=== PATIENT | male | born 1995 | race Caucasian/White ===

== ENCOUNTER → 2019-10-22 | Outpatient (CLI) | payer OTHER ==
[~2019-10-22] MED LIST: METHACHOLINE KIT (J7674) INH ONE
--- NOTE | 2019-10-22 15:32 | PFTRPT ---
Height: 65.00 Inches Weight: 147.00 Lbs BSA: 1.74 Diagnosis: R06.00 DATE OF PROCEDURE: 10/22/2019 ORDERED BY: Nolan Baig PA-C INTERPRETATION: Study of excellent technical quality. Under protocol, methacholine was administered. Even after a maximal dose of 25 mg or 188.875 CDUs, no provocation dose ever achieved. IMPRESSION: Negative methacholine challenge study. MTDD
== END ==
LOC: M CARPUL 14:31
PROVIDERS: ATTEND Physician Assistant
DX: R06.00 Dyspnea, unspecified (principal)
CPT/HCPCS: 94070; J7674

== ENCOUNTER 2020-05-05 11:12 | Inpatient (IN) | payer OTHER ==
[~2020-05-05] VITALS: Ht 165.1 cm; Wt 66.8 kg
[2020-05-05] MEDS ORDERED: MOBI15TA PO (11:23)
[2020-05-05 12:34] LABS: HEMATOCRIT 41.3 % (42.0-52.0); HEMOGLOBIN 14.4 g/dl (13.5-17.5); MEAN CORPUSCULAR HGB CONC 34.9 g/dl (32.0-36.5); MEAN CORPUSCULAR VOLUME 88.8 fl (80.0-96.0); PLATELET COUNT, AUTOMATED 235 10^3/uL (150-450); RED BLOOD COUNT 4.65 10^6/uL (4.30-6.10); WHITE BLOOD COUNT 7.3 10^3/uL (4.0-10.0)
[2020-05-05 12:45] LABS: AMPHETAMINES LEVEL URINE NEGATIVE (NEGATIVE); BARBITURATES URINE NEGATIVE (NEGATIVE); BENZODIAZEPINES URINE NEGATIVE (NEGATIVE); CANNABINOIDS URINE NEGATIVE (NEGATIVE); COCAINE METABOLITE URINE NEGATIVE (NEGATIVE); METHADONE URINE NEGATIVE (NEGATIVE); OPIATES URINE NEGATIVE (NEGATIVE); PHENCYCLIDINE URINE NEGATIVE (NEGATIVE)
[2020-05-05 12:55] LABS: ACETAMINOPHEN LEVEL < 2.0 UG/ML (10.0-30.0); ALBUMIN 4.3 GM/DL (3.2-5.2); ALT/SGPT 21 U/L (12-78); BILIRUBIN,DIRECT 0.2 MG/DL (0.0-0.2); BILIRUBIN,TOTAL 0.9 MG/DL (0.2-1.0); BLOOD UREA NITROGEN 14 MG/DL (7-18); CARBON DIOXIDE LEVEL 30 MEQ/L (21-32); CHLORIDE LEVEL 107 MEQ/L (98-107); GLOMERULAR FILTRATION RATE > 60.0 (>60); GLUCOSE, FASTING 83 MG/DL (70-100); SALICYLATE LEVEL < 1.7 MG/DL (5.0-30.0); SODIUM LEVEL 141 MEQ/L (136-145); THYROID STIMULATING HORMONE 0.657 uIU/ML (0.358-3.740); TOTAL PROTEIN 7.2 GM/DL (6.4-8.2)
[2020-05-05 13:19] LABS: ETHYL ALCOHOL (ETHANOL) < 0.003 % (0.000-0.010)
[2020-05-05] MEDS ORDERED: ACETAMINOPHEN TAB 650MG DOSE (2X325MG) PO PRN (21:30)
[2020-05-05] MEDS ORDERED: OLANZapine ORAL DISINTEGRATING TAB 5MG PO PRN (21:30)
[2020-05-05] MEDS ORDERED: MOM 30ML SUSPENSION UDC PO PRN (21:30)
[2020-05-05] MEDS ORDERED: NICOTINE 21MG/24HR 1 EA TRANSDERMAL TD PRN (21:30)
[2020-05-05] MEDS ORDERED: MAALOX 30 ML SUSP *UDC PO PRN (21:30)
[2020-05-05] MEDS ORDERED: traZODone 50 MG TAB PO PRN (21:30)
[2020-05-05 23:26] VITALS: BP 128/74
[2020-05-06 06:48] VITALS: BP 118/69
--- NOTE | 2020-05-06 09:16 | MHHPEPDOC ---
[facility] History & Physical History and Physical DATE OF ADMISSION: May 05, 2020 at 21:22 HPI: Poli presents today for concerns regarding his audio and visual hallucinations since last winter. He complains of visual hallucinations that are distorted. He complains of auditory hallucinations of voices and sounds. 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 He complains of flashbacks when he is in his uniform. Hes noticed occasional bipolar mood swings where his lows and highs alternate every few weeks. FAMILY HISTORY: Poli denies any family history of hallucinations. Objective Appearance: Well groomed. Appears to be stated age. Well nourished. Speech: Spontaneous and Fluid. Normal volume. Normal rate. Cognition: Alert, Attentive, and Oriented to person, place, time. Reports auditory hallucinations, but no signs of internal preoccupation are seen. Thought Form: Linear and goal directed. Somewhat guarded at times. Judgement: Intact as evidenced by decision making in the recent past. Insight: Good insight into symptoms and treatment options. Assessment F43.9 Reaction to severe stress, unspecified Plan The risks, benefits as well as common side effects as well as alternative treatments (including non-treatment) were discussed with the patient both in general and for their particular case. The patient selected this option out of a range. Try 2 mg Abilify nightly for mood stabilization. Treatment is between 1-3 days. Vital Signs Vital Signs Date Time Temp Pulse Resp B/P (MAP) Pulse Ox O2 Delivery O2 Flow Rate FiO2 05/06/20 08:54 Room Air 05/06/20 06:48 97.6 70 12 118/69 (85) 05/05/20 23:26 98 Laboratory Data 24H Labs Laboratory Tests 2 05/05/20 11:51: Nucleated Red Blood Cells % (auto) 0.0, Anion Gap 4L, Glomerular Filtration Rate > 60.0, Calcium Level 9.0, Total Bilirubin 0.9, Direct Bilirubin 0.2, Aspartate Amino Transf (AST/SGOT) 24, Alanine Aminotransferase (ALT/SGPT) 21, Alkaline Phosphatase 71, Total Protein 7.2, Albumin 4.3, Albumin/Globulin Ratio 1.5, Thyroid Stimulating Hormone (TSH) 0.657, Salicylates Level < 1.7L, Urine Opiates Screen NEGATIVE, Urine Methadone Screen NEGATIVE, Acetaminophen Level < 2.0L, Urine Barbiturates Screen NEGATIVE, Urine Phencyclidine Screen NEGATIVE, Urine Amphetamines Screen NEGATIVE, Urine Benzodiazepines Screen NEGATIVE, Urine Cocaine Metabolite Screen NEGATIVE, Urine Cannabinoids Screen NEGATIVE, Ethyl Alcohol Level < 0.003 CBC/BMP Laboratory Tests 05/05/20 11:51 Medications Scheduled Meloxicam (Mobic) 15 Mg Tablet, 15 MG PO DAILY, (Reported) Allergies Coded Allergies: No Known Allergies (Unverified , 10/18/19) A-FIB/CHADSVASC A-FIB History Current/History of A-Fib/PAF?: No KAL PARKINSON DO May 06, 2020 09:16
[2020-05-06 16:18] VITALS: BP 111/59
[2020-05-06] MEDS ORDERED: ARIPiprazole 2 MG TAB PO SCH (21:00)
--- NOTE | 2020-05-06 23:17 | HPEPDOC ---
[facility] Medical History & Physical Date of Admission May 05, 2020 Date of Service: May 06, 2020 History and Physical CHIEF COMPLAINT: HISTORY OF PRESENT ILLNESS: PAST MEDICAL HISTORY: 1. . 2. . 3. . PAST SURGICAL HISTORY: 1. . 2. . 3. . SOCIAL HISTORY: Marital status: . Resides in: Children: Employment: Tobacco use: ETOH: Illicit drug use: Tattoos done unprofessionally: . IV drug use: Other relevant social factors: FAMILY HISTORY: Father: Mother: Siblings: Children: Hereditary Diseases: Unexpected deaths due to medical reasons: ALLERGIES: Please see below. REVIEW OF SYSTEMS: CONSTITUTIONAL: . HEENT: . CARDIOVASCULAR: . RESPIRATORY: . GASTROINTESTINAL: . GENITOURINARY: . SKIN: . MUSCULOSKELETAL: . NEUROLOGICAL: . PSYCHIATRIC: . ENDOCRINE: . HEMATOLOGIC/LYMPHATIC: . HOME MEDICATIONS: Please see below. PHYSICAL EXAMINATION: VITAL SIGNS: Temperature , pulse , respiratory rate , blood pressure , pulse oximetry % on room air. GENERAL APPEARANCE: . HEENT: . CARDIOVASCULAR: . LUNGS: . ABDOMEN: . MUSCULOSKELETAL: . EXTREMITIES: . NEUROLOGICAL: . PSYCHIATRIC: . LABORATORY DATA: See below. IMAGING: MICROBIOLOGY: Please see below. ASSESSMENT: . . PLAN: 1. . Vital Signs Vital Signs Date Time Temp Pulse Resp B/P (MAP) Pulse Ox O2 Delivery O2 Flow Rate FiO2 05/06/20 16:18 98.5 56 16 111/59 (76) 05/06/20 08:54 Room Air 05/05/20 23:26 98 Home Medications Scheduled Meloxicam (Mobic) 15 Mg Tablet, 15 MG PO DAILY Allergies Coded Allergies: No Known Allergies (Unverified , 10/18/19) CARLOS A CARRASCO MD May 06, 2020 23:17
[2020-05-07 06:44] VITALS: BP 137/73
--- NOTE | 2020-05-07 08:09 | MHIPNPDOC ---
[facility] Progress Note Progress Note DATE OF SERVICE: 05/07/20 Subjective HPI: Poli presents today for follow-up after taking medication. Poli reported that he felt calm and less anxious after taking the medication last night. He denies being afraid of people, but prefers to keep to himself as he is isolated from other people at the moment. Poli denies experiencing tremors and does not report any specific problems or complaints. Additionally, Poli would like to be discharged tomorrow. MEDICATIONS: He is doing well on the medication Abilify, but an increased dosage is recommended. Objective Appearance: Appears to be stated age. Well nourished. Well groomed. Behavior: Cooperative with good eye contact. Pleasant. Engaged. Affect: Appropriate to context. Full range. Mood: Euthymic. Generally good. Appropriately reactive. Speech: Normal rate. Spontaneous and Fluid. Normal volume. Motor: No gross motor abnormalities. Cognition: Alert, Attentive, and Oriented to person, place, time. Memory: No gross abnormalities of short or roll handler memory noted during interview. No formal testing. Thought Form: Linear and goal directed. Thought Content: No thoughts of self harm. No evidence of suicidal ideation. No evidence of delusions. No evidence of aggressive or homicidal ideation. Perception: No perceptual abnormalities noted. Judgement: Intact as evidenced by decision making in the recent past. Insight: Good insight into symptoms and treatment options. Assessment F29 Unspecified psychosis not due to a substance or known physiological condition Plan Increase Abilify dosage to 5 mg, nightly, to help with development, stability, and reported auditory hallucinations. Discharge tomorrow at patients request. Patient will not likely meet involuntary criteria at that time. Vital Signs Vital Signs Date Time Temp Pulse Resp B/P (MAP) Pulse Ox O2 Delivery O2 Flow Rate FiO2 05/07/20 06:44 98.8 62 16 137/73 (94) 05/06/20 08:54 Room Air 05/05/20 23:26 98 Current Medications Current Medications Medications (Trade) Dose Ordered Sig/Jo Route PRN Reason Start Time Stop Time Status Last Admin Dose Admin Acetaminophen (Tylenol Tab) 650 mg Q6HP PRN PO HEADACHE or DISCOMFORT 05/05/20 21:30 Al Hydrox/Mg Hydrox/Simethicone (Mylanta) 30 ml Q4HP PRN PO HEARTBURN/INDIGESTION 05/05/20 21:30 Aripiprazole (AbiLIFY) 2 mg QHS PO 05/06/20 21:00 05/06/20 21:52 Home Med (Med Rec Complete!) ASDIRECTED XX 05/05/20 14:00 05/05/20 13:50 DC Magnesium Hydroxide (Milk Of Magnesia) 30 ml DAILYPRN PRN PO CONSTIPATION 05/05/20 21:30 Nicotine (Nicoderm Cq 21mg) 1 patch DAILY PRN TD Nicotine withdrawal 05/05/20 21:30 Olanzapine (ZyPREXA ZYDIS) 5 mg Q4HP PRN PO AGITATION 05/05/20 21:30 Trazodone HCl (Desyrel) 50 mg QHSP PRN PO INSOMNIA 05/05/20 21:30 Allergies Coded Allergies: No Known Allergies (Unverified , 10/18/19) KAL PARKINSON DO May 07, 2020 08:09
--- NOTE | 2020-08-18 11:07 | MHDSPDOC ---
[facility] Discharge Summary Discharge Summary DATE OF ADMISSION: May 05, 2020 at 21:22 DATE OF DISCHARGE: May 08, 2020 at 11:37 DISCHARGE DIAGNOSES: Acute stress reaction CONSULTANTS INVOLVED:[ None (basic hospitalist screening)] REASON FOR ADMISSION & TREATMENT AND PROGRESS ON THE UNIT : The patient was admitted to the inpatient mental health unit with acute stress reaction, he was treated with Abilify first 2 mg increased to 5 mg the positive effects, he made good progress and eventually was triaged for discharge. He had no major issues on the unit and generally resolved terms of suicide and auditory hallucinations quickly after he had presented. DISCHARGE ASSESSMENT:[improved] Legal status considerations: The patient at the time of discharge did not meet criteria for involuntary admission/extension due to having a [normal] mental status exam, [fair] insight into the situation, They are engaged in the discharge process, as well as being friendly and amenable in behavioral control and havent been engaging in any observed concerning behavior or ideation recently. They decline voluntary exte nsion/admission at this time and must be discharged in good [place], as Im unable to make a case for holding the patient against their will. They may have historical risk factors of admissions and other interactions with psychiatry however, those are not modifiable from a clinical perspective. The patient will need to be discharged in good edgar. MENTAL STATUS EXAMINATION ON DISCHARGE: [General: Well dressed with good hygiene Speech: Spontaneous and fluid Thought processes: Linear and logical Thought content: Future orientated Abstract reasoning, and computation: Intact Description of associations: Intact Description of abnormal or psychotic thoughts:Denies any suicidal or homicidal ideation. Denies any auditory or visual hallucinations. Does not appear to be responding to internal stimuli. Does not appear to be endorsing any bizarre or paranoid ideation. Judgment: fair Insight: fair Orientation: Alert and orientated 3 Recent and remote memory: Intact Attention span and concentration: Intact Fund of knowledge: Adequate Mood: "okay" Affect: Euthymic with a full range] PLAN/FOLLOWUP ARRANGEMENTS: Follow up appointments made (PCP and MH in 5 days of D/C date) and safety plan completed. Safety Planning aspects completed prior to discharge [Medication supplies limited to 7 days with 4 refills to prevent accumulation to OD] [Family contact completed, educated on safe practices, instructed on removal and mitigation of dangerous means] [RN reviewed crisis hotline information and other aspects to empower patient to access care in interim before next appointment.] The amount of time spent in the coordination of care for this patient was approximately 30 minutes. Medications Scheduled Aripiprazole (Abilify) 5 Mg Tablet, 5 MG PO QHS for mood for 7 Days, #7 Scheduled PRN Tizanidine HCl (Tizanidine HCl) 4 Mg Tablet, 4 MG PO TID PRN for MUSCLE SPASMS for 7 Days, #7 Allergies Coded Allergies: No Known Allergies (Unverified , 10/18/19) KAL PARKINSON DO Aug 18, 2020 11:07
== END 2020-05-08 11:37 | disposition home or self-care (01) | DRG 882 ==
LOC: M ED 11:12 → M ED INP 21:22 → M PSY 22:19
PROVIDERS: ADMIT Psychiatry & Neurology Addiction Medicine; ATTEND Psychiatry & Neurology Addiction Medicine
DX: F43.9 Reaction to severe stress, unspecified (principal); F29 Unspecified psychosis not due to a substance or known physiological condition

== ENCOUNTER 2020-07-21 12:03 | Inpatient (IN) | payer OTHER ==
[~2020-07-21] VITALS: Ht 165.1 cm; Wt 69.5 kg
[~2020-07-21 12:03] MED LIST changes: -METHACHOLINE KIT (J7674) INH ONE; +MOBI15TA PO
[2020-07-21 12:29] LABS: HEMATOCRIT 41.8 % (42.0-52.0); HEMOGLOBIN 14.9 g/dl (13.5-17.5); MEAN CORPUSCULAR HEMOGLOBIN 30.5 pg (27.0-33.0); MEAN CORPUSCULAR HGB CONC 35.6 g/dl (32.0-36.5); MEAN CORPUSCULAR VOLUME 85.7 fl (80.0-96.0); PLATELET COUNT, AUTOMATED 219 10^3/uL (150-450); RED BLOOD COUNT 4.88 10^6/uL (4.30-6.10); WHITE BLOOD COUNT 5.6 10^3/uL (4.0-10.0)
[2020-07-21 13:12] LABS: ACETAMINOPHEN LEVEL < 2.0 UG/ML (10.0-30.0); ALBUMIN 4.1 GM/DL (3.2-5.2); ALT/SGPT 16 U/L (12-78); BILIRUBIN,DIRECT 0.1 MG/DL (0.0-0.2); BILIRUBIN,TOTAL 0.5 MG/DL (0.2-1.0); BLOOD UREA NITROGEN 12 MG/DL (7-18); CALCIUM LEVEL 9.2 MG/DL (8.5-10.1); CARBON DIOXIDE LEVEL 27 MEQ/L (21-32); CHLORIDE LEVEL 108 MEQ/L (98-107); CREATININE FOR GFR 0.97 MG/DL (0.70-1.30); ETHYL ALCOHOL (ETHANOL) < 0.003 % (0.000-0.010); GLOMERULAR FILTRATION RATE > 60.0 (>60); GLUCOSE, FASTING 105 MG/DL (70-100); SALICYLATE LEVEL < 1.7 MG/DL (5.0-30.0); SODIUM LEVEL 141 MEQ/L (136-145); THYROID STIMULATING HORMONE 0.742 uIU/ML (0.358-3.740); TOTAL PROTEIN 7.2 GM/DL (6.4-8.2)
[2020-07-21] MEDS ORDERED: TIZA4TAB4 PO (17:07)
[2020-07-21] MEDS ORDERED: ABIL1TAB11 PO (17:07)
[2020-07-21 18:05] LABS: AMPHETAMINES LEVEL URINE NEGATIVE (NEGATIVE); BARBITURATES URINE NEGATIVE (NEGATIVE); BENZODIAZEPINES URINE NEGATIVE (NEGATIVE); CANNABINOIDS URINE NEGATIVE (NEGATIVE); COCAINE METABOLITE URINE NEGATIVE (NEGATIVE); METHADONE URINE NEGATIVE (NEGATIVE); OPIATES URINE NEGATIVE (NEGATIVE); PHENCYCLIDINE URINE NEGATIVE (NEGATIVE)
[2020-07-21] MEDS ORDERED: MOM 30ML SUSPENSION UDC PO PRN (22:15)
[2020-07-21] MEDS ORDERED: MAALOX 30 ML SUSP *UDC PO PRN (22:15)
[2020-07-21] MEDS ORDERED: traZODone 50 MG TAB PO PRN (22:15)
[2020-07-21] MEDS ORDERED: ACETAMINOPHEN TAB 650MG DOSE (2X325MG) PO PRN (22:15)
[2020-07-21] MEDS ORDERED: tiZANidine 4 MG TAB PO PRN (22:30)
[2020-07-21] MEDS ORDERED: OLANZapine ORAL DISINTEGRATING TAB 5MG PO PRN (22:30)
[2020-07-21 23:41] VITALS: BP 122/62
[2020-07-22 07:07] VITALS: BP 105/57
--- NOTE | 2020-07-22 09:11 | MHHPEPDOC ---
[facility] History & Physical History and Physical DATE OF ADMISSION: Jul 21, 2020 at 22:09 Subjective HPI: Poli presents today for concerns regarding a possible resurgence of a previous psychotic disorder. Patient didnt experience anything different during the fir st week after discontinuing Abilify. During second week, he felt paranoid, audio and visual hallucinations, and problems with concentration and functioning while driving. Patient denies suicidal thoughts or any past suicidal attempts. MEDICATIONS: Current medications include Tizanidine for muscle relaxant, Abilify 5 mg one pill daily. Patient has stopped taking Abilify about 2 weeks ago. MEDICAL HISTORY: Patient was last seen in the facility in April 2020. FAMILY HISTORY: Patient has no family history of mental health problems. SOCIAL HISTORY - OCCUPATION: Patient is in the [employer]. Hes trying to get out but its been a long process. SOCIAL HISTORY - LIVING SITUATION: Patient is living in the [facility] which he states are normal living conditions, but lots of mechanisms are in the room such as multiple fire alarms, AC equipment which disturb him. Patient is unmarried. Hes close to his family and has friends. SOCIAL HISTORY - SUBSTANCE USE: Patient has no history of alcohol use. SOCIAL HISTORY - SMOKING: He has not used tobacco or marijuana. Objective Behavior: Pleasant. Poor eye contact. Engaged. Speech: Normal rate. Spontaneous and Fluid. Normal volume. Cognition: Fair. Thought Form: Linear and logical. Thought Content: No thoughts of self harm. No evidence of delusions. No evidence of aggressive or homicidal ideation. No evidence of suicidal ideation. Judgement: Poor - Fair. Insight: Poor - Fair. Assessment F29 Unspecified psychosis not due to a substance or known physiological condition Plan Restart Abilify 5 mg nightly. Staying 1-3 days. Tx. 1. altered thoughts and SI/HI Vital Signs Vital Signs Date Time Temp Pulse Resp B/P (MAP) Pulse Ox O2 Delivery O2 Flow Rate FiO2 07/22/20 07:07 97.7 40 16 105/57 (73) 97 Room Air Laboratory Data 24H Labs Laboratory Tests 2 07/21/20 12:21: Nucleated Red Blood Cells % (auto) 0.0, Anion Gap 6L, Glomerular Filtration Rate > 60.0, Calcium Level 9.2, Total Bilirubin 0.5, Direct Bilirubin 0.1, Aspartate Amino Transf (AST/SGOT) 15, Alanine Aminotransferase (ALT/SGPT) 16, Alkaline Phosphatase 68, Total Protein 7.2, Albumin 4.1, Albumin/Globulin Ratio 1.3, Thyroid Stimulating Hormone (TSH) 0.742, Salicylates Level < 1.7L, Acetaminophen Level < 2.0L, Ethyl Alcohol Level < 0.003 07/21/20 17:17: Urine Opiates Screen NEGATIVE, Urine Methadone Screen NEGATIVE, Urine Barbiturates Screen NEGATIVE, Urine Phencyclidine Screen NEGATIVE, Urine Amphetamines Screen NEGATIVE, Urine Benzodiazepines Screen NEGATIVE, Urine Cocaine Metabolite Screen NEGATIVE, Urine Cannabinoids Screen NEGATIVE CBC/BMP Laboratory Tests 07/21/20 12:21 Medications Scheduled Aripiprazole (Abilify) 5 Mg Tablet, 5 MG PO QHS, (Reported) Scheduled PRN Tizanidine HCl (Tizanidine HCl) 4 Mg Tablet, 4 MG PO TID PRN for MUSCLE SPASMS, (Reported) Allergies Coded Allergies: No Known Allergies (Unverified , 10/18/19) KAL PARKINSON DO Jul 22, 2020 09:10
--- NOTE | 2020-07-22 14:38 | HPEPDOC ---
General Date of Admission Jul 21, 2020 at 22:09 Date of Service: Jul 22, 2020 Chief Complaint The patient is a 25-year-old male admitted with a reason for visit of Psychotic Disorder. Source: Patient Exam Limitations: No limitations History of Present Illness Patient is 25 years old male with past medical history of chronic back pain presented to the hospital with auditory and visual hallucinations. Patient stated that he has never had these symptoms before. Patient has never been diagnosed with schizophrenia, depression or anxiety. Patient stated that he has been recently under emotional stress. During my interview patient denied fever, chills, nausea, vomiting, diarrhea or dysuria. Patient stated that he has back stiffness in the morning. Home Medications Scheduled Aripiprazole (Abilify) 5 Mg Tablet, 5 MG PO QHS, (Reported) Scheduled PRN Tizanidine HCl (Tizanidine HCl) 4 Mg Tablet, 4 MG PO TID PRN for MUSCLE SPASMS, (Reported) Allergies Coded Allergies: No Known Allergies (Unverified , 10/18/19) Past Medical History Medical History Chronic back pain Family History Patient stated that both parents are healthy Social History * Smoker: Denies Alcohol: Denies Drugs: denies A-FIB/CHADSVASC A-FIB History Current/History of A-Fib/PAF?: No Current PO Anticoag Therapy: No Review of Systems Constitutional: Denies: Chills, Fever Eyes: Denies: Pain ENT: Denies: Head Aches, Ear Pain Skin: Denies: Rash Pulmonary: Denies: Dyspnea, Cough Cardiovascular: Denies: Chest Pain Gastrointestinal: Denies: Nausea Genitourinary: Denies: Dysuria Hematologic: Denies: Bruising Endocrine: Denies: Polydipsia, Polyphagia Musculoskeletal: Reports: Back Pain Neurological: Denies: Weakness Psych: Reports: Anxiety Physical Examination General Exam: Positive: Alert, Cooperative Eye Exam: Positive: PERRLA ENT Exam: Positive: Atraumatic Neck Exam: Positive: Supple; Negative: JVD Chest Exam: Positive: Clear to auscultation Heart Exam: Positive: Rate Normal Telemetry: Positive: No significant arrhythmia Abdomen Exam: Positive: Normal bowel sounds Extremity Exam: Negative: Clubbing, Cyanosis Skin Exam: Positive: Nl turgor and temperature Neuro Exam: Positive: Normal Gait, Strength at 5/5 X4 ext Psych Exam: Positive: Oriented x 3 Vital Signs Vital Signs Date Time Temp Pulse Resp B/P (MAP) Pulse Ox O2 Delivery O2 Flow Rate FiO2 07/22/20 07:07 97.7 40 16 105/57 (73) 97 Room Air Laboratory Data Labs 24H Laboratory Tests 2 07/21/20 17:17: Urine Opiates Screen NEGATIVE, Urine Methadone Screen NEGATIVE, Urine Barbiturates Screen NEGATIVE, Urine Phencyclidine Screen NEGATIVE, Urine Amphetamines Screen NEGATIVE, Urine Benzodiazepines Screen NEGATIVE, Urine Cocaine Metabolite Screen NEGATIVE, Urine Cannabinoids Screen NEGATIVE Assessment/Plan Patient is 25 years old male with past medical history of chronic back pain presented to the hospital with auditory and visual hallucinations. Patient state d that he has never had these symptoms before. Patient has never been diagnosed with schizophrenia, depression or anxiety. Patient stated that he has been recently under emotional stress. During my interview patient denied fever, chills, nausea, vomiting, diarrhea or dysuria. Patient stated that he has back stiffness in the morning. Problems (1) Psychosis Status: Acute Problem Text: Will defer to psych team (2) Back pain Status: Chronic Problem Text: Ibuprofen PO There is concern for ankylosing spondylitis Patient will need follow-up with [facility] in the outpatient settings Plan / VTE VTE Prophylaxis Ordered?: No VTE Exclusion Mechanical Proph: Low Risk for VTE DION DE LA CRUZ DO Jul 22, 2020 14:38
[2020-07-22] MEDS ORDERED: IBUPROFEN 400 MG TAB PO PRN (15:00)
[2020-07-22 17:33] VITALS: BP 134/67
[2020-07-23 06:30] VITALS: BP 133/63
--- NOTE | 2020-07-23 10:08 | MHIPNPDOC ---
[facility] Progress Note Progress Note DATE OF SERVICE: 07/23/20 Subjective HPI: Patient seen today reports that he is making some improvements in his symptoms and is feeling better, he reports that he feeling better and tolerating abilify without any side effects, he reports that he is amenable to staying to observe the effects,it's unclear if his psychotic symptoms are elaborated or otherwise not represent what he is claiming. Objective Appearance: Hygiene - Fair. Affect: More reactive. Speech: More fluid. Cognition: Improved. Thought Form: More linear and logical. Insight: Better insight. Assessment F29 Unspecified psychosis not due to a substance or known physiological condition Plan Continue Abilify 5mg qhs will continue to observe, symptoms not clear as to wither related to the patient's report or wither apart of another disorder. Vital Signs Vital Signs Date Time Temp Pulse Resp B/P (MAP) Pulse Ox O2 Delivery O2 Flow Rate FiO2 07/23/20 06:30 96.6 68 16 133/63 (86) 99 Room Air Current Medications Current Medications Medications (Trade) Dose Ordered Sig/Jo Route PRN Reason Start Time Stop Time Status Last Admin Dose Admin Acetaminophen (Tylenol Tab) 650 mg Q6HP PRN PO HEADACHE or DISCOMFORT 07/21/20 22:15 Al Hydrox/Mg Hydrox/Simethicone (Mylanta) 30 ml Q4HP PRN PO HEARTBURN/INDIGESTION 07/21/20 22:15 Aripiprazole (AbiLIFY) 5 mg QHS PO 07/22/20 21:00 07/22/20 20:00 Home Med (Med Rec Complete!) ASDIRECTED XX 07/21/20 17:15 07/21/20 17:09 DC Ibuprofen (Advil) 400 mg BIDP PRN PO PAIN 07/22/20 15:00 Magnesium Hydroxide (Milk Of Magnesia) 30 ml DAILYPRN PRN PO CONSTIPATION 07/21/20 22:15 Olanzapine (ZyPREXA ZYDIS) 5 mg Q4HP PRN PO ANXIETY/AGITATION 07/21/20 22:30 Tizanidine HCl (Zanaflex) 4 mg TID PRN PO MUSCLE SPASMS 07/21/20 22:30 Trazodone HCl (Desyrel) 50 mg QHSP PRN PO INSOMNIA 07/21/20 22:15 Allergies Coded Allergies: No Known Allergies (Unverified , 10/18/19) KAL PARKINSON DO Jul 23, 2020 10:08
[2020-07-24 06:37] VITALS: BP 133/69
[2020-07-24 17:58] VITALS: BP 142/74
--- NOTE | 2020-07-24 18:54 | MHIPNPDOC ---
[facility] Progress Note Progress Note DATE OF SERVICE: 07/24/20 HISTORY: As per ED report: "Patient arrived via EMS after being seen at [facility] today. reported that patient has hx here, as well as there. Today he described experiencing both AH & VH, with some thoughts of harming/killing others. These thoughts are w/out plan or target, although he was unable to follow a safety plan while at the clinic. currently has a working dx of R/O Cluster A Personality D/O, as well as Problems related to occupation. Review of patient's EMR revealed a prior admission for psychosis" VITAL SIGNS: See below. NEW TEST RESULTS: See below CURRENT MEDICATIONS: See below. MENTAL STATUS EXAMINATION: Patient is a 25 year old male, who is alert, dressed in hospital clothes, cooperative. Speech: Is spontaneous and fluent, a little bit rapid. Normal tone and volume Language skills are good. Thought processes including: linear, coherent. Thought content: denies thought delusions, denies TAV hallucinations, denies SI/HI. Abstract reasoning, and computation: good Description of associations: intact Description of abnormal or psychotic thoughts: denies thought delusions, denies TAV hallucinations, denies SI/HI. Judgment: Improving Insight: Good Orientation: x 3 Recent and remote memory: Intact Attention span and concentration: intact Language: adequate. Fund of knowledge: average. Mood: euthymic. Affect: congruent with mood DIAGNOSES: F29 Unspecified psychosis not due to a substance or known physiological condition ASSESSMENT: The patient says he feels improved, he denies TAV hallucinations. He is not responding to internal stimuli. 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 He says he is in pain and it was during the cold season that he started getting injured, he fears the cold season, because he thinks he may fall and he thinks it contributes to his psychosis. He says his body starts getting cold also but he says at this time, he feels bettr. MANAGEMENT PLAN: As per Dr. Case TIME SPENT: 20 minutes. Vital Signs Vital Signs Date Time Temp Pulse Resp B/P (MAP) Pulse Ox O2 Delivery O2 Flow Rate FiO2 07/24/20 17:58 97.9 72 16 142/74 (96) 07/24/20 06:37 Room Air 07/23/20 06:30 99 Current Medications Current Medications Medications (Trade) Dose Ordered Sig/Jo Route PRN Reason Start Time Stop Time Status Last Admin Dose Admin Acetaminophen (Tylenol Tab) 650 mg Q6HP PRN PO HEADACHE or DISCOMFORT 07/21/20 22:15 07/24/20 13:56 Al Hydrox/Mg Hydrox/Simethicone (Mylanta) 30 ml Q4HP PRN PO HEARTBURN/INDIGESTION 07/21/20 22:15 Aripiprazole (AbiLIFY) 5 mg QHS PO 07/22/20 21:00 07/23/20 21:39 Home Med (Med Rec Complete!) ASDIRECTED XX 07/21/20 17:15 07/21/20 17:09 DC Ibuprofen (Advil) 400 mg BIDP PRN PO PAIN 07/22/20 15:00 Magnesium Hydroxide (Milk Of Magnesia) 30 ml DAILYPRN PRN PO CONSTIPATION 07/21/20 22:15 Olanzapine (ZyPREXA ZYDIS) 5 mg Q4HP PRN PO ANXIETY/AGITATION 07/21/20 22:30 Tizanidine HCl (Zanaflex) 4 mg TID PRN PO MUSCLE SPASMS 07/21/20 22:30 Trazodone HCl (Desyrel) 50 mg QHSP PRN PO INSOMNIA 07/21/20 22:15 Allergies Coded Allergies: No Known Allergies (Unverified , 10/18/19) SYDNEY VERMA MD Jul 24, 2020 18:46
[2020-07-25 06:46] VITALS: BP 114/71
[2020-07-25 18:12] VITALS: BP 118/76
[2020-07-26 07:07] VITALS: BP 118/61
--- NOTE | 2020-07-26 16:06 | MHIPN ---
DATE: 07/25/2020 The patient today tells me that he is doing "good." He says she slept good. He is denying any suicidal thoughts. MENTAL STATUS EXAMINATION: This patient is alert and oriented times three. Eye contact fair. Psychomotor activity is normal. Mood is okay. Affect is flat. He is not psychotic. He is not suicidal. Concentration is fair, memory intact. Insight and judgment are fair. DIAGNOSIS: Unspecified psychotic disorder. TREATMENT PLAN: We will continue to monitor the patient for continued elevation and resolution of his psychotic symptoms, and we will stabilize medications as indicated. OPALD
[2020-07-26 18:20] VITALS: BP 129/63
[2020-07-27 06:41] VITALS: BP 112/61
--- NOTE | 2020-07-27 09:46 | MHIPNPDOC ---
[facility] Progress Note Progress Note DATE OF SERVICE: 07/27/20 Subjective HPI: Patient was met with today. He reports that he is doing well. He reports the auditory hallucinations are resolved and that he is prepared for discharge tomorrow. Patient reports that he has gone to groups and felt more social on the unit. He has done well according to nursing staff report, sometimes isolated but otherwise engaged. Objective Appearance: Appears to be stated age. Well nourished. Well groomed. Behavior: Cooperative with good eye contact. Pleasant. Engaged. Affect: Appropriate to context. Full range. Mood: Appropriately reactive. Generally good. Euthymic. Speech: Spontaneous and Fluid. Normal rate. Normal volume. Motor: No gross motor abnormalities. Cognition: Alert, Attentive, and Oriented to person, place, time. Memory: No gross abnormalities of short or custodial memory noted during interview. No formal testing. Thought Form: Linear and goal directed. Thought Content: No evidence of delusions. No evidence of aggressive or homicidal ideation. No evidence of suicidal ideation. No thoughts of self harm. Perception: No perceptual abnormalities noted. Judgement: Intact as evidenced by decision making in the recent past. Insight: Good insight into symptoms and treatment options. Assessment F28 Other psychotic disorder not due to a substance or known physiological condition Plan Continue abilify and discharge tomorrow. Vital Signs Vital Signs Date Time Temp Pulse Resp B/P (MAP) Pulse Ox O2 Delivery O2 Flow Rate FiO2 07/27/20 06:41 97.0 66 14 112/61 (78) 98 Room Air Current Medications Current Medications Medications (Trade) Dose Ordered Sig/Jo Route PRN Reason Start Time Stop Time Status Last Admin Dose Admin Acetaminophen (Tylenol Tab) 650 mg Q6HP PRN PO HEADACHE or DISCOMFORT 07/21/20 22:15 07/24/20 13:56 Al Hydrox/Mg Hydrox/Simethicone (Mylanta) 30 ml Q4HP PRN PO HEARTBURN/INDIGESTION 07/21/20 22:15 Aripiprazole (AbiLIFY) 5 mg QHS PO 07/22/20 21:00 07/26/20 20:09 Home Med (Med Rec Complete!) ASDIRECTED XX 07/21/20 17:15 07/21/20 17:09 DC Ibuprofen (Advil) 400 mg BIDP PRN PO PAIN 07/22/20 15:00 Magnesium Hydroxide (Milk Of Magnesia) 30 ml DAILYPRN PRN PO CONSTIPATION 07/21/20 22:15 Olanzapine (ZyPREXA ZYDIS) 5 mg Q4HP PRN PO ANXIETY/AGITATION 07/21/20 22:30 Tizanidine HCl (Zanaflex) 4 mg TID PRN PO MUSCLE SPASMS 07/21/20 22:30 Trazodone HCl (Desyrel) 50 mg QHSP PRN PO INSOMNIA 07/21/20 22:15 07/26/20 20:09 Allergies Coded Allergies: No Known Allergies (Unverified , 10/18/19) KAL PARKINSON DO Jul 27, 2020 09:46
[2020-07-27 16:09] VITALS: BP 115/66
[2020-07-28 06:35] VITALS: BP 140/65
--- NOTE | 2020-07-28 09:31 | MHIPN ---
DATE: 07/26/2020 The patient today tells me that he is doing good. He says he slept well. He is denying any suicidal or homicidal ideations and still does not feel that there is anything wrong with him. He denies any psychotic symptoms and I suspect that he is still minimizing. MENTAL STATUS EXAMINATION: This patient is alert and oriented times three. Eye contact is fair. Psychomotor activity is normal. Mood is good. Affect is flat. I am not eliciting any psychotic symptoms but I suspect this patient is just minimizing. He denies suicidal or homicidal ideations. Concentration is fair. Memory intact. Insight and judgment is fair. DIAGNOSIS: Unspecified psychotic disorder. TREATMENT PLAN: We will continue to monitor the patient for continued elevation and resolution of psychotic symptoms and we will adjust medications as indicated. OPALD
--- NOTE | 2020-07-28 10:46 | MHDSPDOC ---
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 He has reported having suicidal thoughts, homicidal thoughts and auditory hallucinations. He had been recently admitted and given Abilify and reports that he has not been taking it. He had test done for [facility] and the testing appeared to show exaggerations making all the testing invalid. There was a conclusion drawn of Cluster A personality characteristics, however, it was not clear. He appears to be quite socially isolated but certainly was friendly during visit so it's unclear on what had provoked his presenting problem. He tolerated the medication while and made great strides. He was fine staying extra days for further observation and appeared to resolve. Unclear whether his auditory hallucinations were present. MEDICATIONS: Resumed on Abilify 5 mg for nearly a week and did very well without any problem. DISCHARGE ASSESSMENT[improved] Legal status considerations: The patient at the time of discharge did not meet criteria for involuntary admission/extension due to having a improved mental status exam, improved insight into the situation, They are engaged in the discharge process, as well as being friendly and amenable in behavioral control and havent been engaging in any observed concerning behavior or ideation recently. They decline voluntary extension/admission at this time and must be discharged in good [place], as Im unable to make a case for holding the patient against their will. They may have historical risk factors of admissions and other interactions with psychiatry however, those are not modifiable from a clinical perspective. The patient will need to be discharged in good edgar. MENTAL STATUS EXAMINATION ON DISCHARGE: Appearance: Well groomed. Well nourished. Appears to be stated age. Behavior: Engaged. Pleasant. Cooperative with good eye contact. Affect: Appropriate to context. Full range. Mood: Euthymic. Generally good. Appropriately reactive. Speech: Normal rate. Normal volume. Spontaneous and Fluid. Motor: No gross motor abnormalities. Cognition: Alert, Attentive, and Oriented to person, place, time. Memory: No gross abnormalities of short or [facility] memory noted during interview. No formal testing. Thought Form: Linear and goal directed. Thought Content: No thoughts of self harm. No evidence of suicidal ideation. No evidence of aggressive or homicidal ideation. No evidence of delusions. Perception: No perceptual abnormalities noted. Judgement: Intact as evidenced by decision making in the recent past. Insight: Good insight into symptoms and treatment options. PLAN/FOLLOWUP ARRANGEMENTS: Follow up appointments made (PCP and MH in 5 days of D/C date) and safety plan completed. Safety Planning aspects completed prior to discharge [DOD: Weapons Profile 30 days] [Medication supplies limited to 7 days with 4 refills to prevent accumulation to OD] [RN reviewed crisis hotline information and other aspects to empower patient to access care in interim before next appointment.] The amount of time spent in the coordination of care for this patient was approximately 30 minutes. Vital Signs/I&Os Vital Signs Date Time Temp Pulse Resp B/P (MAP) Pulse Ox O2 Delivery O2 Flow Rate FiO2 07/28/20 06:35 97.8 66 16 140/65 (90) 07/27/20 06:41 98 Room Air Medications Scheduled Aripiprazole (Abilify) 5 Mg Tablet, 5 MG PO QHS for mood for 7 Days, #7 Scheduled PRN Tizanidine HCl (Tizanidine HCl) 4 Mg Tablet, 4 MG PO TID PRN for MUSCLE SPASMS for 7 Days, #7 Allergies Coded Allergies: No Known Allergies (Unverified , 10/18/19) KAL PARKINSON DO Jul 28, 2020 10:46
[2020-07-28] MEDS ORDERED: ABIL1TAB11 PO (10:49)
[2020-07-28] MEDS ORDERED: TIZA4TAB4 PO (10:49)
== END 2020-07-28 12:05 | disposition home or self-care (01) | DRG 884 ==
LOC: M ED 12:03 → M ED INP 22:09 → M PSY 23:10
PROVIDERS: ADMIT Psychiatry & Neurology Psychiatry; ATTEND Psychiatry & Neurology Addiction Medicine
DX: F06.0 Psychotic disorder with hallucinations due to known physiological condition (principal); R45.851 Suicidal ideations; R45.850 Homicidal ideations; M54.5 Low back pain